=== PATIENT | female | born 1975 | race Caucasian/White ===

== ENCOUNTER 2022-09-10 05:59 | Day surgery (SDC) | payer BC ==
[2022-09-09 10:21] VITALS: BMI 19.3
[2022-09-10] MEDS ORDERED: Vancomycin 1 GM VIAL ONE (07:02)
[2022-09-10] MEDS ORDERED: EPINEPHrine 1 MG/ML AMP ONE (07:02)
[2022-09-10] MEDS ORDERED: Lidocaine 1% (PF) 30 ML VIAL ONE (07:02)
[2022-09-10] MEDS ORDERED: Bupivacaine 0.25% HCL 30 ML VIAL ONE (07:02)
[2022-09-10] MEDS ORDERED: Midazolam HCl 2 mg/2 ml Vial ONE (07:07)
[2022-09-10] MEDS ORDERED: Fentanyl 250 MCG/5 ML VIAL ONE (07:07)
[2022-09-10] MEDS ORDERED: CEFAZOLIN 1 GM VIAL ONE (07:24)
[2022-09-10] MEDS ORDERED: Sodium Chloride 0.9% 100 ML ONE (07:24)
[2022-09-10] MEDS ORDERED: PROPOFOL 40 ML ONE (07:30)
[2022-09-10] MEDS ORDERED: Fentanyl 100 MCG/2 ML VIAL ONE (07:35)
[2022-09-10] MEDS ORDERED: Naloxone HCl 0.4 mg/ml Vial ONE (07:48)
[2022-09-10] MEDS ORDERED: Ondansetron PF 4 MG/2 ML Vial ONE (07:48)
== END 2022-09-10 09:50 | disposition home or self-care (01) ==
LOC: SDC 05:59
PROVIDERS: ATTEND Anesthesiology Pain Medicine
PROC: 0JPT0MZ Removal of Stimulator Generator from Trunk Subcutaneous Tissue and Fascia, Open Approach (ICD-10-PCS; principal; 2022-09-10)
PROC: 0JH80MZ Insertion of Stimulator Generator into Abdomen Subcutaneous Tissue and Fascia, Open Approach (ICD-10-PCS; principal; 2022-09-10)
DX: Z45.42 Encounter for adjustment and management of neurostimulator (principal); Z79.899 Other long term (current) drug therapy; Z88.2 Allergy status to sulfonamides; Z88.5 Allergy status to narcotic agent; Z91.048 Other nonmedicinal substance allergy status; Z98.1 Arthrodesis status
CPT/HCPCS: C1767; J0171; J0690; J2001; J2250; J2310; J2405; J2704; J3010; J3370; J3490; S0020

== ENCOUNTER 2023-05-05 15:51 | Outpatient (CLI) | payer BC | END 2023-05-05 15:52 | disposition home or self-care (01) | LOC: BICMAMMO 15:51 | PROVIDERS: ATTEND Internal Medicine | DX: Z12.31 Encounter for screening mammogram for malignant neoplasm of breast (principal) | CPT/HCPCS: 77063; 77067 ==